=== PATIENT | male | born 1995 | race Caucasian/White ===

== ENCOUNTER → 2017-05-25 | Outpatient (CLI) | payer BC | LOC: BMCIMAGING 12:50 | PROVIDERS: ATTEND Emergency Medicine | DX: J40 Bronchitis, not specified as acute or chronic (principal); R91.8 Other nonspecific abnormal finding of lung field ==

== ENCOUNTER 2017-06-30 07:02 | Observation (INO) | payer BC ==
[2017-06-30] MEDS ORDERED: NS 1,000 ML IV ONE (07:33)
[2017-06-30] MEDS ORDERED: ONDANSETRON 4 MG/2 ML VIAL IVP ONE (07:33)
--- NOTE | 2017-06-30 07:37 | EDPHY ---
H & P Time Seen by Provider: 06/30/17 07:28 HPI/ROS: CHIEF COMPLAINT: Abdominal pain HISTORY OF PRESENT ILLNESS: 22-year-old male presents with abdominal pain. He awoke 2 hr ago because of periumbilical abdominal pain. The pain is moderate and waxes and wanes. Associated with nausea. Loose stools yesterday, no BM today. No alleviating or aggravating factors. No known fever. No prior abdominal surgery. REVIEW OF SYSTEMS: complete 10 point ROS negative except at noted in the HPI Past Medical/Surgical History: Denies Social History: Student at [employer], studying [employer] science Smoking Status: Never smoked Physical Exam: General Appearance: Alert, pleasant, appears pale Eyes: Pupils equal and round, no conjunctival pallor or injection ENT, Mouth: Mucous membranes moist Neck: Normal inspection Respiratory: Lungs are clear to auscultation Cardiovascular: Regular rate and rhythm Gastrointestinal: Abdomen is tense, diffuse tenderness, especially right lower quadrant, voluntary guarding Neurological: A&O, nonfocal, normal gait Skin: Warm and dry Extremities: Normal inspection Psychiatric: Mood and affect normal Constitutional: Initial Vital Signs Temperature (C) 36.4 C 06/30/17 07:05 Heart Rate 79 06/30/17 07:05 Respiratory Rate 18 06/30/17 07:05 Blood Pressure 101/50 L 06/30/17 07:05 O2 Sat (%) 97 06/30/17 07:05 O2 Delivery Mode Room Air Allergies/Adverse Reactions: No Known Allergies Allergy (Unverified 06/30/17 07:04) Home Medications: Medication Instructions Recorded Amphet Asp and D/Amphet [Adderall 10 mg PO DAILY14 06/30/17 10 MG (*)] Lisdexamfetamine Dimesylate 40 mg PO DAILY 06/30/17 [Vyvanse] guanFACINE HCL [Guanfacine HCl 1 1 mg PO BID 06/30/17 MG (*)] Medical Decision Making - Diagnostics Imaging Results: Imaging Impressions Abdomen CT 06/30/17 07:34 Impression: 1. No CT evidence of acute appendicitis. The appendix is not optimally visualized due to limited mesenteric fat. 2. Trace free fluid. No abscess, evidence of ileitis, or obstruction. Findings discussed with Emergency Department physician, Nataliia Lawrence, at 06/30 at 8:47 a.m. ED Course/Re-evaluation: This patient presents with diffuse abdominal pain and guarding, concerning for acute appendicitis. IV normal saline 1 L and Zofran 4 mg IV given. Ketamine IV given for pain control. CT scan read by Dr. Blu Barnett; the appendix is not visualized, no signs of inflammation. Results discussed with the patient. He currently feels somewhat better after IV ketamine. Abdomen is soft, continues to have tenderness, especially in the left lower quadrant. No guarding or peritoneal signs. I will observe him in the emergency department. 11:30 a.m.-continues to have abdominal pain, abdominal exam is unchanged. Given persistent pain of unclear etiology, I will admit him to the hospital for observation. Toradol 15 mg IV given. The hospitalist service was consulted for admission. Differential Diagnosis: Differential diagnosis includes though it is not limited to appendicitis, cholecystitis, diverticulitis, pyelonephritis, bowel perforation, small bowel obstruction. - Data Points Laboratory Results: Laboratory Results 06/30/17 07:30 06/30/17 07:30 06/30/17 06/30/17 07:30 07:30 WBC 10.03 10^3/uL H 10^3/uL (3.80-9.50) RBC 5.24 10^6/uL 10^6/uL (4.40-6.38) Hgb 14.5 g/dL g/dL (13.7-17.5) Hct 42.3 % % (40.0-51.0) MCV 80.7 fL L fL (81.5-99.8) MCH 27.7 pg L pg (27.9-34.1) MCHC 34.3 g/dL g/dL (32.4-36.7) RDW 12.7 % % (11.5-15.2) Plt Count 276 10^3/uL 10^3/uL (150-400) MPV 8.9 fL fL (8.7-11.7) Neut % (Auto) 74.5 % H % (39.3-74.2) Lymph % (Auto) 15.1 % % (15.0-45.0) Noble % (Auto) 9.1 % % (4.5-13.0) Eos % (Auto) 0.8 % % (0.6-7.6) Baso % (Auto) 0.2 % L % (0.3-1.7) Nucleat RBC Rel Count 0.0 % % (0.0-0.2) Absolute Neuts (auto) 7.48 10^3/uL H 10^3/uL (1.70-6.50) Absolute Lymphs (auto) 1.51 10^3/uL 10^3/uL (1.00-3.00) Absolute Monos (auto) 0.91 10^3/uL H 10^3/uL (0.30-0.80) Absolute Eos (auto) 0.08 10^3/uL 10^3/uL (0.03-0.40) Absolute Basos (auto) 0.02 10^3/uL 10^3/uL (0.02-0.10) Absolute Nucleated RBC 0.00 10^3/uL 10^3/uL (0-0.01) Immature Gran % 0.3 % % (0.0-1.1) Immature Gran # 0.03 10^3/uL 10^3/uL (0.00-0.10) Sodium 140 mEq/L mEq/L (135-145) Potassium 4.2 mEq/L mEq/L (3.5-5.2) Chloride 104 mEq/L mEq/L (97-110) Carbon Dioxide 24 mEq/l mEq/l (22-31) Anion Gap 12 mEq/L mEq/L (8-16) BUN 18 mg/dL mg/dL (7-23) Creatinine 1.1 mg/dL mg/dL (0.7-1.3) Estimated GFR > 60 Glucose 109 mg/dL H mg/dL (70-100) Calcium 9.6 mg/dL mg/dL (8.5-10.4) Total Bilirubin 0.7 mg/dL mg/dL (0.1-1.4) Conjugated Bilirubin 0.4 mg/dL mg/dL (0.0-0.5) Unconjugated Bilirubin 0.3 mg/dL mg/dL (0.0-1.1) AST 26 IU/L IU/L (17-59) ALT 34 IU/L IU/L (21-72) Alkaline Phosphatase 77 IU/L IU/L (38-126) Total Protein 7.8 g/dL g/dL (6.3-8.2) Albumin 4.4 g/dL g/dL (3.5-5.0) Lipase 50 IU/L IU/L (23-300) Medications Given: Discontinued Medications Sodium Chloride (Ns) 1,000 mls @ 0 mls/hr IV EDNOW ONE; Wide Open PRN Reason: Protocol Stop: 06/30/17 07:34 Last Admin: 06/30/17 07:38 Dose: 1,000 mls Ketamine HCl (Ketamine) 15.4 mg 0.2 mg/kg (15.4 mg) IVP EDNOW ONE Stop: 06/30/17 07:58 Last Admin: 06/30/17 08:21 Dose: 15.4 mg Ketorolac Tromethamine (Toradol) 15 mg IVP EDNOW ONE Stop: 06/30/17 11:50 Last Admin: 06/30/17 12:10 Dose: 15 mg Ondansetron HCl (Zofran) 4 mg IVP EDNOW ONE Stop: 06/30/17 07:34 Last Admin: 06/30/17 07:40 Dose: 4 mg Departure - Departure Disposition: [facility] Inpatient Acute Clinical Impression: Abdominal pain Qualifiers: Abdominal location: generalized Qualified Code(s): R10.84 - Generalized abdominal pain Condition: Good
[2017-06-30 07:41] LABS: PLATELET COUNT 276 10^3/uL (150-400)
[2017-06-30] MEDS ORDERED: IOPAMIDOL (ISOVUE-300) 100 ML BTL ONE (07:55)
[2017-06-30] MEDS ORDERED: KETAMINE 200 MG/20 ML VIAL IVP ONE (07:57)
[2017-06-30] MEDS ORDERED: KETOROLAC 15 MG/1 ML SDV IVP ONE (11:49)
[2017-06-30] MEDS ORDERED: ONDANSETRON 4 MG/2 ML VIAL IVP PRN (12:18)
[2017-06-30] MEDS ORDERED: ONDANSETRON DISINTEGRATING 4 MG TAB PO PRN (12:18)
[2017-06-30] MEDS ORDERED: ACETAMINOPHEN 325 MG TAB PO PRN (12:18)
--- NOTE | 2017-06-30 15:09 | PDGENHP ---
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 Pain was worse with standing. No fevers, + chills. Pain was 10/10 this am, now 3/10. No radiation. He reports an episode of fever, nausea and vomiting last week, which since resolved. He did not have abdominal pain at that time. Says temp was as high as 100. This occurred 4-5 days ago and no fevers since. Some nausea recurred this am with the onset of abdominal pain, but no more vomiting. He also had some diarrhea last week, liquid-suzette. Resolved after 2 days. No brbpr. No melena. Last BM yesterday, which was normal. He states he is hungry now. History Information - Allergies/Home Medication List Allergies/Adverse Reactions: No Known Allergies Allergy (Unverified 06/30/17 07:04) Home Medications: Amphet Asp and D/Amphet [Adderall 10 MG (*)] 10 mg PO DAILY14 06/30/17 [Last Taken 06/29/17] Lisdexamfetamine Dimesylate [Vyvanse] 40 mg PO DAILY 06/30/17 [Last Taken ] guanFACINE HCL [Guanfacine HCl 1 MG (*)] 1 mg PO BID 06/30/17 [Last Taken 21:00] I have personally reviewed and updated: family history, medical history, social history, surgical history - Past Medical History Additional medical history: ADHD - Surgical History Additional surgical history: eye surgery for strabismus - Family History Additional family history: mom and dad are alive and healthy - Social History Smoking Status: Never smoked Alcohol Use: Other (occasional high risk drinking) Drug Use: None Additional [place] Works at [employer]. Review of Systems Review of Systems: ROS: 10pt was reviewed & negative except for what was stated in HPI & below Physical Exam Physical Exam: Temp Pulse Resp BP Pulse Ox 36.6 C 55 L 12 96/50 L 95 06/30/17 14:56 06/30/17 14:56 06/30/17 14:56 06/30/17 14:56 06/30/17 14:56 Constitutional: no apparent distress Eyes: PERRL Ears, Nose, Mouth, Throat: dry mucous membranes Cardiovascular: regular rate and rhythym, no murmur, rub, or gallop Respiratory: no respiratory distress, clear to auscultation Gastrointestinal: normoactive bowel sounds, other (soft, mild diffuse TTP without r/r/g, +BS) Skin: warm Musculoskeletal: full muscle strength Neurologic: AAOx3 Psychiatric: interacting appropriately Lab Data & Imaging Review 06/30/17 07:30 06/30/17 07:30 WBC 10.03 10^3/uL (3.80-9.50) H 06/30/17 07:30 RBC 5.24 10^6/uL (4.40-6.38) 06/30/17 07:30 Hgb 14.5 g/dL (13.7-17.5) 06/30/17 07:30 Hct 42.3 % (40.0-51.0) 06/30/17 07:30 MCV 80.7 fL (81.5-99.8) L 06/30/17 07:30 MCH 27.7 pg (27.9-34.1) L 06/30/17 07:30 MCHC 34.3 g/dL (32.4-36.7) 06/30/17 07:30 RDW 12.7 % (11.5-15.2) 06/30/17 07:30 Plt Count 276 10^3/uL (150-400) 06/30/17 07:30 MPV 8.9 fL (8.7-11.7) 06/30/17 07:30 Neut % (Auto) 74.5 % (39.3-74.2) H 06/30/17 07:30 Lymph % (Auto) 15.1 % (15.0-45.0) 06/30/17 07:30 Titus % (Auto) 9.1 % (4.5-13.0) 06/30/17 07:30 Eos % (Auto) 0.8 % (0.6-7.6) 06/30/17 07:30 Baso % (Auto) 0.2 % (0.3-1.7) L 06/30/17 07:30 Nucleat RBC Rel Count 0.0 % (0.0-0.2) 06/30/17 07:30 Absolute Neuts (auto) 7.48 10^3/uL (1.70-6.50) H 06/30/17 07:30 Absolute Lymphs (auto) 1.51 10^3/uL (1.00-3.00) 06/30/17 07:30 Absolute Monos (auto) 0.91 10^3/uL (0.30-0.80) H 06/30/17 07:30 Absolute Eos (auto) 0.08 10^3/uL (0.03-0.40) 06/30/17 07:30 Absolute Basos (auto) 0.02 10^3/uL (0.02-0.10) 06/30/17 07:30 Absolute Nucleated RBC 0.00 10^3/uL (0-0.01) 06/30/17 07:30 Immature Gran % 0.3 % (0.0-1.1) 06/30/17 07:30 Immature Gran # 0.03 10^3/uL (0.00-0.10) 06/30/17 07:30 Sodium 140 mEq/L (135-145) 06/30/17 07:30 Potassium 4.2 mEq/L (3.5-5.2) 06/30/17 07:30 Chloride 104 mEq/L (97-110) 06/30/17 07:30 Carbon Dioxide 24 mEq/l (22-31) 06/30/17 07:30 Anion Gap 12 mEq/L (8-16) 06/30/17 07:30 BUN 18 mg/dL (7-23) 06/30/17 07:30 Creatinine 1.1 mg/dL (0.7-1.3) 06/30/17 07:30 Estimated GFR > 60 06/30/17 07:30 Glucose 109 mg/dL (70-100) H 06/30/17 07:30 Calcium 9.6 mg/dL (8.5-10.4) 06/30/17 07:30 Total Bilirubin 0.7 mg/dL (0.1-1.4) 06/30/17 07:30 Conjugated Bilirubin 0.4 mg/dL (0.0-0.5) 06/30/17 07:30 Unconjugated Bilirubin 0.3 mg/dL (0.0-1.1) 06/30/17 07:30 AST 26 IU/L (17-59) 06/30/17 07:30 ALT 34 IU/L (21-72) 06/30/17 07:30 Alkaline Phosphatase 77 IU/L (38-126) 06/30/17 07:30 Total Protein 7.8 g/dL (6.3-8.2) 06/30/17 07:30 Albumin 4.4 g/dL (3.5-5.0) 06/30/17 07:30 Lipase 50 IU/L (23-300) 06/30/17 07:30 Assessment & Plan Assessment: Abdominal pain (Acute) - consider appendicitis, gastritis, or enteritis. No inflammatory changes noted on CT, appendix not well visualized. Minimally elevated wbc's. Lipase nl. Case discussed with general surgery. -clear liquids for now -tylenol, prn morphine for pain -trial PPI -surgery to eval due to concern for possible early appendicitis -trend wbc's, serial abdominal exams ADHD - hold adderall for now, cont vyvanse Full code Dispo - obs
[2017-06-30] MEDS ORDERED: NS 1,000 ML IV SCH (15:15)
[2017-06-30] MEDS: PANTOPRAZOLE SODIUM 40 MG TAB PO SCH (16:02)
--- NOTE | 2017-06-30 23:21 | SOAPPROG ---
SOAP Progress Note Assessment/Plan: Assessment: 22-YEAR-OLD MALE WITH RIGHT LOWER QUADRANT PAIN BUT NONVISUALIZED APPENDIX [place] [id number] HIS PAIN STARTED PERIUMBILICALLY CASSIA IS MIGRATED SOMEWHAT THE RIGHT LOWER QUADRANT IS WORSE WITH MOVEMENT. HE HAS HAD SOME NAUSEA NO VOMITING NO DIARRHEA AND NO FEVER HEENT IS NONICTERIC WITHOUT ADENOPATHY OR ORAL LESIONS CHEST CLEAR COR REGULAR RHYTHM ABDOMEN SOFT, MILD RIGHT LOWER QUADRANT TENDERNESS WITHOUT GUARDING OR REBOUND, NO HERNIAS GENITALIA NORMAL EXTREMITIES FULL RANGE OF MOTION FULL PULSES NEUROLOGIC IS PHYSIOLOGIC PAST MEDICAL HISTORY INCLUDES STRABISMUS SURGERY AND ADD NO KNOWN ALLERGIES MEDICATIONS ADDERALL, VYVANSE REVIEW OF SYSTEMS IS NEGATIVE FOR ANY MAJOR MEDICAL PROBLEMS SOCIAL HISTORY REVEALS HE DOES NOT SMOKE IS A COLLEGE STUDENT FAMILY HISTORY NONCONTRIBUTORY IMPRESSION I DOUBT THAT HE HAS APPENDICITIS Plan: OBSERVATION RE-EVALUATION IN THE A.M. 06/30/17 23:19 06/30/17 23:23 Objective: Vital Signs Temp Pulse Resp BP Pulse Ox 36.6 C 57 L 14 100/52 L 96 06/30/17 19:04 06/30/17 19:04 06/30/17 19:04 06/30/17 19:04 06/30/17 19:04 06/29/17 06/30/17 07/01/17 05:59 05:59 05:59 Intake Total 1302 Balance 1302 ICD10 Worksheet Patient Problems: Problems Problem Status Onset Abdominal pain Acute
[2017-07-01 05:52] LABS: PLATELET COUNT 239 10^3/uL (150-400)
[2017-07-01] MEDS: PANTOPRAZOLE SODIUM 40 MG TAB PO SCH (08:52)
[2017-07-01] MEDS ORDERED: Lisdexamfetamine Dimesylate [Vyvanse] 40 MG PO SCH (09:00)
--- NOTE | 2017-07-01 09:18 | SOAPPROG ---
SOAP Progress Note Assessment/Plan: Assessment: 22 y/o male admitted yesterday for LLQ pain. CT negative for appendicitis S: Feeling much better. Pain is almost gone. Denies n/v. Passing gas, no BM. Would like to try eating solid food. O: Alert Afebrile VSS RRR No increased WOB Abdomen: soft, nontender, +BS Plan: Advance diet as tolerated. Given his improvement in symptoms, likely discharge home today. 07/01/17 09:16 Objective: Vital Signs Temp Pulse Resp BP Pulse Ox 36.3 C 42 L 12 89/47 L 97 07/01/17 07:45 07/01/17 07:45 07/01/17 07:45 07/01/17 07:45 07/01/17 07:45 Laboratory Results 07/01/17 05:09 06/30/17 07/01/17 07/02/17 05:59 05:59 05:59 Intake Total 2477 Balance 2477 ICD10 Worksheet Patient Problems: Problems Problem Status Onset Abdominal pain Acute
[2017-07-01 11:25] VITALS: BP 111/58
== END 2017-07-01 12:17 | disposition home or self-care (01) ==
LOC: F3E 12:33
PROVIDERS: ADMIT Hospitalist; ATTEND Hospitalist
DX: R10.84 Generalized abdominal pain (principal); E86.9 Volume depletion, unspecified
CPT/HCPCS: 74177; 96361; 96374; 96375; 99285; G0378; J1885; J2270; J2405; Q9967

== ENCOUNTER 2017-09-11 13:46 | Emergency (ER) | payer BC, OTHER ==
--- NOTE | 2017-09-11 13:55 | EDPHY ---
H & P Stated Complaint: CHI 1 week ago, RODRIGUEZ and Dizzy Time Seen by Provider: 09/11/17 13:55 HPI/ROS: CHIEF COMPLAINT: Persistent headache and dizziness following head injury 1 week ago HISTORY OF PRESENT ILLNESS: Patient presents the ED with complaints of a persistent occipital headache and vague disequilibrium following a head injury 1 week ago. The patient reportedly hit his head while working initially on a shelf and then fell back striking the ground. He had an uncertain loss of consciousness. The patient has had some mild nausea. The patient denies any focal numbness or weakness. The patient is not anticoagulated. He reports his headache is moderate to severe in nature. He denies any neck pain. He denies additional traumatic injury. REVIEW OF SYSTEMS: A comprehensive 10 point review of systems is otherwise negative aside from elements mentioned in the history of present illness. Source: Patient Exam Limitations: No limitations - Personal History Current Tetanus Diphtheria and Acellular Pertussis (TDAP): Yes - Medical/Surgical History Hx Asthma: No Hx Chronic Respiratory Disease: No Hx Diabetes: No Hx Cardiac Disease: No Hx Renal Disease: No Hx Cirrhosis: No Hx Alcoholism: No Hx HIV/AIDS: No Hx Splenectomy or Spleen Trauma: No Other PMH: PNA, Schley - Social History Smoking Status: Never smoked - Physical Exam Exam: General Appearance: Alert, no distress Head: Occipital tenderness to palpation, no palpable deformity or hematoma Eyes: Pupils equal, round, reactive ENT, Mouth: No hemotympanum, no oral trauma Neck: Nontender, trachea midline Respiratory: No chest wall tender, subcutaneous air, lungs clear bilaterally Cardiovascular: Regular rate and rhythm Abdomen: Abdomen is soft and nontender, pelvis stable Skin: No lacerations, No abrasion Back: No midline T/L/S pain Extremities: Nontender, full range of motion Neurological: A&Ox3, normal motor function, normal sensory exam Constitutional: Initial Vital Signs Temperature (C) 36.7 C 09/11/17 13:48 Heart Rate 65 09/11/17 13:48 Respiratory Rate 18 09/11/17 13:48 Blood Pressure 114/63 09/11/17 13:48 O2 Sat (%) 95 09/11/17 13:48 O2 Delivery Mode Room Air Allergies/Adverse Reactions: No Known Allergies Allergy (Unverified 06/30/17 07:04) Home Medications: Medication Instructions Recorded Amphet Asp and D/Amphet [Adderall 10 mg PO DAILY14 06/30/17 10 MG (*)] Lisdexamfetamine Dimesylate 40 mg PO DAILY 06/30/17 [Vyvanse] guanFACINE HCL [Guanfacine HCl 1 1 mg PO BID 06/30/17 MG (*)] Pantoprazole Sodium [Protonix 40mg 40 mg PO DAILY #30 tab 07/01/17 (*)] Medical Decision Making - Diagnostics Imaging Results: Imaging Impressions Head CT 09/11/17 13:59 Impression: 1. No acute intracranial abnormality seen. 2. Incidental arachnoid cyst anterior left temporal fossa. If symptoms worsen, additional imaging may be necessary. Findings discussed with Benja Walker M.D. at 14:26 hour, 09/11/2017. ED Course/Re-evaluation: The patient presents the ED with a persistent headache in the setting of recent head trauma. Given the duration of his symptoms a CT scan of the brain was ordered. Fortunately CT scan of the brain demonstrates no evidence of intracranial hemorrhage or skull fracture. The patient will be discharged home with customary concussion aftercare instructions. Differential Diagnosis: Differential diagnosis considered includes concussion, skull fracture, intracranial hemorrhage Departure - Departure Disposition: Home, Routine, Self-Care Clinical Impression: Concussion Condition: Good Instructions: Concussion (ED) Additional Instructions: 1. Take Ibuprofen or Motrin 600 mg by mouth three times a day. Tylenol 650 mg every 6 hr as needed for pain. 2. Concussion aftercare as directed. Please follow up with our concussion specialist Dr. Millard for any symptoms which persists past 3-5 days. 3. Please return to the ED for markedly worsening symptoms, intractable vomiting , neck pain, numbness or weakness. Referrals: Tiffanie Millard MD [Medical Doctor] - As per Instructions
[2017-09-11 15:06] VITALS: BP 115/70
== END 2017-09-11 15:05 | disposition home or self-care (01) ==
DX: S06.0X0A Concussion without loss of consciousness, initial encounter (principal); W22.8XXA Striking against or struck by other objects, initial encounter; Y99.0 Civilian activity done for income or pay; Y93.89 Activity, other specified